=== PATIENT | female | born 1985 | race Caucasian/White ===

== ENCOUNTER 2017-05-24 22:32 | Emergency (ER) | payer SELFPAY ==
[~2017-05-24] VITALS: Ht 162.6 cm; Wt 73.0 kg
[2017-05-24 22:35] VITALS: BP 157/96; PULSE 81; RESP 16; TEMP 98.6; O2SAT 99
[2017-05-24 22:59] VITALS: BP 159/76; PULSE 84; RESP 16; O2SAT 99
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
[2017-05-24] MEDS ORDERED: DICL75TA PO (23:22)
[2017-05-24] MEDS ORDERED: ROBA500T PO (23:22)
[2017-05-24] MEDS ORDERED: NAPROXEN 500 MG TAB PO ONE (23:30)
[2017-05-24] MEDS ORDERED: METHOCARBAMOL 500 MG TAB PO ONE (23:30)
[2017-05-24 23:49] LABS: BACTERIA, URINE OCC /hpf; BLOOD, URINE NEG (NEG); COMMENT (UR) CULT NOT INDICATED; CULTURE IF INDICATED CULT NOT INDICATED; GLUCOSE,URINE NEG (NEG); KETONE, URINE NEG (NEG); NITRITE,URINE NEG (NEG); PH, URINE 6.5 (5.0-8.5); SQUAMOUS EPITHELIAL CELL URINE 2 /hpf (0-5); URINE COLOR LIGHT-YELLOW (YELLW/STRAW)
== END 2017-05-25 00:24 | disposition home or self-care (01) ==
LOC: NEPD 22:32
DX: M54.9 Dorsalgia, unspecified (principal)
CPT/HCPCS: 81001; 84703; 99284